=== PATIENT | female | born 1980 | race Two or more races ===

== ENCOUNTER 2025-05-17 13:55 | Emergency (ER) | payer SELFPAY ==
[~2025-05-17] VITALS: Ht 165.1 cm; Wt 71.0 kg
--- NOTE | 2025-05-17 14:56 | ED.PDOC ---
HPI Comments 45 y.o female presents tot he ED with a 2 day history of chest pain, described as a heavy sensation radiating to her left arm, in which is also reported as a soreness sensation. Patient has a cardiac history from childhood however is unclear her diagnosis. Patient denies any other symptoms such as nausea, vomiting, or SOB. Patient mentions tobacco use via cigarettes with previous history of recreational drug use in which she denies using any recently. Chief Complaint: Chest Pain Time Seen by MD: 14:42 Reviewed Notes: Nurses Notes, Medications, Allergies Allergies: Coded Allergies: NO KNOWN ALLERGIES (Unverified , 05/17/25) Information Source: Patient Mode of Arrival: Ambulatory Severity: Moderate Timing: Days (2) Duration: Since onset Location: Substernal Radiation: Arm (L) Quality: Heavy Onset: At Rest Cardiac Risk Factors: None PE Risk Factors: None History of: None Modifying Factors: Nothing Associated Signs and Symptoms: Other Past Medical History Past Medical History (Other): Cardiac issue- childhood unsure diagnosis Surgical History: Denies all surgeries SANE RN History: No Pertinent SANE RN History Family History Family History: Reviewed,noncontributory to illness Social History Smoker: Non-Smoker Alcohol: Occasionally Drugs: Denies Drug Use Lives In: Home Constitutional: denies: chills, diaphoresis, fatigue, fever, malaise, sweats, weakness, others EENTM: denies: blurred vision, double vision, ear bleeding, ear discharge, ear drainage, ear pain, ear ringing, eye pain, eye redness, hearing loss, mouth pain, mouth swelling, nasal discharge, nose bleeding, nose congestion, nose pain, photophobia, tearing, throat pain, throat swelling, voice changes, others Respiratory: denies: cough, hemoptysis, orthopnea, SOB at rest, shortness of breath, SOB with excertion, stridor, wheezing, others Cardiovascular: reports: chest pain, left arm pain; denies: dizzy spells, diaphoresis, Dyspnea on exertion, edema, irregular heart beat, lightheadedness, palpitations, PND, syncope, others Gastrointestinal: denies: abdomen distended, abdominal pain, blood streaked bowels, constipated, diarrhea, dysphagia, difficulty swallowing, hematemesis, melena, nausea, poor appetite, poor fluid intake, rectal bleeding, rectal pain, vomiting, others Genitourinary: denies: abnormal vagina bleeding, burning, dyspareunia, dysuria, flank pain, frequency, hematuria, incontinence, pain, , vagina discharge, urgency, others Neurological: denies: dizziness, fainting, headache, left sided numbness, left sided weakness, numbness, paresthesia, pre-existing deficit, right sided numbness, right sided weakness, seizure, speech problems, tingling, tremors, weakness, others Musculoskeletal: denies: back pain, gout, joint pain, joint swelling, muscle pain, muscle stiffness, neck pain, others Integumetry: denies: bruises, change in color, change in hair/nails, dryness, laceration, lesions, lumps, rash, wounds, others Allergic/Immunocompromised: denies: Difficulty Healing, Frequent Infections, Hives, Itching, others Hematologic/Lymphatic: denies: anemia, blood clots, easy bleeding, easy bruising, swollen glands, others Endocrine: denies: excessive hunger, excessive sweating, excessive thirst, excessive urination, flushing, intolerance to cold, intolerance to heat, unexplained weight gain, unexplained weight loss, others Psychiatric: denies: anxiety, bipolar disorder, depression, hopeless, panic disorder, schizophrenia, sleepless, suicidal, others All Other Systems: Reviewed and Negative Physical Exam General Appearance: Moderate Distress HEENT: Normal ENT Inspection, Pharynx Normal, TMs Normal Neck: Full Range of Motion, Non-Tender, Normal, Normal Inspection Respiratory: Chest Non-Tender, Lungs Clear, No Accessory Muscle Use, No Respiratory Distress, Normal Breath Sounds Cardiovascular: No Edema, No JVD, No Murmur, No Gallop, Normal Peripheral Pulses, Regular Rate/Rhythm Breast Exam: Deferred Gastrointestinal: No Organomegaly, Non Tender, No Pulsatile Mass, Normal Bowel Sounds, Soft Genitalia: Deferred Pelvic: Deferred Rectal: Deferred Extremities: No calf tenderness, Normal capillary refill, Normal inspection, No rmal range of motion, Non-tender, No pedal edema Musculoskeletal : Apperance: Normal Neurologic: Alert, 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 Was a procedure done?: No CP Differential Dx Differential Diagnosis: A-fib, A-Flutter, Angina, Anxiety / Panic Attack, Atrial Dysrhythmia, Electrolyte Disorder, N/A Differential Diagnosis: Angina, Chest Wall Pain, Cholelithiasis, Costochondritis, Gastritis, Pericarditis X-Ray, Labs, Meds, VS Vital Signs Date Time Temp Pulse Resp B/P (MAP) Pulse Ox O2 Delivery O2 Flow Rate FiO2 05/17/25 16:30 87 14 139/83 (101) 99 05/17/25 14:56 88 05/17/25 14:01 88 05/17/25 13:55 98.1 98 19 155/103 99 98.1 Lab Test 05/17/25 15:10 05/17/25 14:15 05/17/25 14:01 Range/Units Troponin I High Sensitivity 3 L < 3 L </=34 ng/L POC Glucose 93 70-106 mg/dl Patient alert. Complaining of chest discomfort. Respiration pristine. Vitals stable. Answering all questions. No leg swelling pain No shortness a breath. Cardiac marker within normal limits. EKG reviewed does not show any acute changes. Explained to the patient. Was told to follow up with her primary care physician. Was told to come back if there is any problem. Time of 1ST Reevaluation: 14:51 Reevaluation 1ST: Improved Time of 2ND Reevaluation: 16:33 Reevaluation 2ND: Improved Patient Education/Counseling: Diagnosis, Treatment, Prognosis Family Education/Counseling: No Family Present SEPSIS Sepsis Screen Date sepsis recognized/suspect: May 17, 2025 Time Sepsis recognized/suspect: 1355 Recent Procedure: No On Antibiotic Therapy: No Respiratory Rate >20: No Heart Rate >90: Yes Temp<36 C (96.8 F) or >38.3 C: No SBP <90 or MAP <65 mmHG: No New Acute Mental Status Change: No Is the patient on CPAP, BIPAP,: No Physician Orders Electrocardigram (05/17/25 13:57) Troponin-I Hs (05/17/25 16:57) Electrocardigram (05/17/25 14:57) Electrocardigram (05/17/25 16:57) Vital Signs Date Time Temp Pulse Resp B/P (MAP) Pulse Ox O2 Delivery O2 Flow Rate FiO2 05/17/25 16:30 87 14 139/83 (101) 99 05/17/25 14:56 88 05/17/25 14:01 88 05/17/25 13:55 98.1 98 19 155/103 99 98.1 Departure 1 Departure Time of Disposition: 16:35 Impression: Primary Impression: Musculoskeletal chest pain Additional Impression: Pleurisy Disposition: HOME / SELF CARE / HOMELESS Condition: Good Discharged With: Self Critical Care Note Critical Care Time?: No Stability Stability form required: No Heart Score Heart Score: Heart Score Response (Comments) Value History Slightly Suspicious 0 EKG Normal 0 Age 45-64 1 Risk Factors 1 or 2 risk factors 1 Troponin Normal limit 0 Total 2 I personally scribed for BOZENA HAWTHORNE MD ([email or web address]) on 05/17/25 at 14:56. Electronically submitted by Marlyn Wayne ([facility]). BOZENA HAWTHORNE MD May 17, 2025 14:56
[2025-05-17 16:30] VITALS: BP 139/83; PULSE 87; RESP 14; TEMP 97.8; O2SAT 99
--- NOTE | 2025-05-20 10:51 | ECG ---
[facility] Test Date: 2025-05-17 Test Time: 14:01:51 Pat Name: ABBE HARMON Department: ED Room: Gender: F Crm Marketing Analyst: REA : 1980 Requested By: BOZENA HAWTHORNE Order Number: [id number] Reading MD: Jose Angel Collier Measurements Intervals Pollard Rate: 88 P: 28 GA: 166 QRS: 87 QRSD: 105 T: 43 QT: 386 QTc: 467 Interpretive Statements Sinus rhythm Nonspecific T abnormalities, anterior leads Baseline wander in lead(s) V2 Electronically Signed On 05-20-2025 22:25:03 PDT by Jose Angel Collier Please click the below link to view image of tracing.
== END 2025-05-17 16:40 | disposition home or self-care (01) ==
LOC: ER 13:55
DX: R07.89 Other chest pain (principal); R09.1 Pleurisy; F17.210 Nicotine dependence, cigarettes, uncomplicated
CPT/HCPCS: 36415; 82947; 82962; 84484; 93005